=== PATIENT | female | born 1980 | race Caucasian/White ===

== ENCOUNTER 2018-02-12 05:32 | Emergency (ER) | payer MEDICAID ==
[~2018-02-12] VITALS: Ht 172.7 cm; Wt 55.0 kg
[2018-02-12] MEDS ORDERED: TETanus/Pertussis (Acell)/Diphther VAC/PF (Tdap-Adult) 0.5ml syringe IM ONE (05:35)
[2018-02-12] MEDS ORDERED: BUPIVAcaine/PF 2.5 mg/ml (0.25%) 30ml vial IJ ONE (06:05)
[2018-02-12] MEDS ORDERED: LIDOcaine 1% 30ml preserv. free vial IJ ONE (06:45)
[2018-02-12] MEDS ORDERED: CEPH-572 PO (07:40)
[2018-02-12] MEDS ORDERED: BACDS PO (07:40)
[2018-02-12 07:44] VITALS: BP 115/71
== END 2018-02-12 08:02 ==
LOC: ER 05:33
DX: S71.151A Open bite, right thigh, initial encounter (principal); L02.416 Cutaneous abscess of left lower limb; L03.116 Cellulitis of left lower limb; F15.10 Other stimulant abuse, uncomplicated; F19.10 Other psychoactive substance abuse, uncomplicated; I10 Essential (primary) hypertension; Z59.0 Homelessness; Z60.2 Problems related to living alone; Z56.0 Unemployment, unspecified; Z79.2 Long term (current) use of antibiotics; Z79.899 Other long term (current) drug therapy; W54.0XXA Bitten by dog, initial encounter; Y93.89 Activity, other specified; Y92.481 Parking lot as the place of occurrence of the external cause; Y99.8 Other external cause status
CPT/HCPCS: 10061; 73551; 87070; 87077; 87186; 90471; 90715; 99285; A6222; A6266; A6446; A6449